=== PATIENT | female | born 1950 | race Two or more races ===

== ENCOUNTER 2021-10-26 22:51 | Emergency (ER) | payer OTHER ==
[~2021-10-26] VITALS: Ht 160 cm; Wt 88.9 kg
[2021-10-26] MEDS ORDERED: NOVOLOG100 UNIT/1 (23:07)
[2021-10-26] MEDS ORDERED: ZESTRIL2.5 MG (23:07)
== END 2021-10-27 02:03 ==
LOC: ER 22:51
DX: U07.1 COVID-19 (principal); B34.9 Viral infection, unspecified

== ENCOUNTER 2021-10-27 11:05 | Outpatient (CLI) | payer OTHER ==
[~2021-10-27 11:05] MED LIST: NOVOLOG100 UNIT/1; ZESTRIL2.5 MG
== END 2021-10-27 12:00 | disposition home or self-care (01) ==
LOC: ASH CLINIC 11:05
PROVIDERS: ATTEND General Practice
DX: U07.1 COVID-19 (principal)